=== PATIENT | male | born 1930 | race Caucasian/White ===

== ENCOUNTER 2017-12-02 20:09 | Emergency (ER) | payer MEDICARE, OTHER ==
--- NOTE | 2017-12-02 21:22 | XRAY Report ---
Procedure Date: 12/02/2017 Accession Number: [id number] / [id number] Procedure: XR - Shoulder 3 View LT CPT Code: FULL RESULT: EXAM: LEFT SHOULDER RADIOGRAPHY EXAM DATE: 12/02/2017 09:01 PM. CLINICAL HISTORY: Ground level fall, pain, limited range of motion. COMPARISON: None. TECHNIQUE: 3 views. FINDINGS: Bones: Nondisplaced fracture through the surgical neck of the humerus. Greater tuberosity appears intact. Joints: Moderate degenerative change at the acromioclavicular joint with downward facing osteophytes in position to impinge upon the rotator cuff. Severe osteophytic spurring, subchondral sclerosis and mild subchondral cystic changes at the glenohumeral joint. No dislocation. Soft tissues: Visualized hemithorax contains a small benign calcified granuloma. Otherwise unremarkable. IMPRESSION: Nondisplaced proximal humeral fracture involving the surgical neck. 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 RADIA
[2017-12-02] MEDS ORDERED: MORPHINE 10 MG/ML VIAL IM STA (21:49)
--- NOTE | 2017-12-02 22:03 | ED Physician Documentation ---
PD HPI UPPER EXT INJURY - Stated complaint Stated Complaint: GLF/L SHOULDER PX - Chief complaint Chief Complaint: Ext Problem - History obtained from History obtained from: Patient - History of Present Illness Location: Left, Shoulder Type of injury: Fall Where injury occurred: Home Timing - onset: Enter time (20:00) Timing - details: Abrupt onset Pain level max: 6 Pain level now: 2 Associated symptoms: Swelling. No: Weakness, Numbness Similar symptoms before: Has not had sx before Recently seen: Not recently seen - Additonal information Additional information: tripped and fell tonight at home, c/o left shoulder pain and left elbow swelling. denies head injury, denies LOC. patient is right hand dominant Review of Systems Cardiac: reports: Reviewed and negative Respiratory: reports: Reviewed and negative Musculoskeletal: reports: Joint pain, Joint swelling. denies: Neck pain, Back pain Neurologic: denies: Focal weakness, Numbness, Altered mental status, Headache, Head injury, LOC PD PAST MEDICAL HISTORY - Past Medical History Past Medical History: No - Present Medications Home Medications: Ambulatory Orders Medication Instructions Recorded Confirmed Aspirin 1 tab PO DAILY 12/02/17 12/02/17 Atorvastatin [Lipitor] 20 mg PO DAILY 12/02/17 12/02/17 Omeprazole [PriLOSEC] 1 tab PO DAILY 12/02/17 12/02/17 Tamsulosin HCl [Flomax] 1 tab PO DAILY 12/02/17 12/02/17 oxyCODONE/ACET 5/325 [Percocet 5 1 - 2 each PO Q6H PRN #20 tablet 12/02/17 mg/325 mg] - Allergies Allergies/Adverse Reactions: Allergies Allergy/AdvReac Type Severity Reaction Status Date / Time plague vaccine Allergy Dizziness Verified 12/02/17 20:21 - Social History Does the pt smoke?: No Smoking Status: Never smoker PD ED PE NORMAL - Vitals Vital signs reviewed: Yes - General General: Alert and oriented X 3, No acute distress, Well developed/nourished - Neck Neck: No bony TTP - Respiratory Respiratory: No respiratory distress, Clear bilaterally - Extremities Extremities: Other (left shoulder tenderness and limited ROM (due to pain with movement); left elbow hematoma (lateral aspect) without bony tenderness or limitation in elbow ROM) - Neuro Neuro: Alert and oriented X 3, No motor deficit, No sensory deficit Results - Vitals Vitals: Oxygen O2 Source Room air - Rads (name of study) left shoulder xrays Radiology: Prelim report reviewed, See rad report PD MEDICAL DECISION MAKING - ED course Complexity details: reviewed results, re-evaluated patient, considered differential, d/w patient - Sepsis Event Vital Signs: Oxygen O2 Source Room air Departure - Departure Disposition: Home, Self Care Clinical Impression: Proximal humeral fracture Condition: Good Instructions: ED Fx Shoulder, ED Sling Prescriptions: oxyCODONE/ACET 5/325 [Percocet 5 mg/325 mg] 1 - 2 each PO Q6H PRN #20 tablet PRN Reason: Pain Comments: Follow up with your orthopedic surgeon next week as scheduled Discharge Date/Time: 12/02/17 23:35
[2017-12-02] MEDS ORDERED: oxyCODONE/ACET 5/325 Prepack 4 PO STA (22:50)
[2017-12-02] MEDS ORDERED: BACITRACIN OINT TOP STA (22:51)
[2017-12-02 23:38] VITALS: BP 133/78
== END 2017-12-02 23:35 | disposition home or self-care (01) ==
LOC: ED 20:09
DX: S42.202A Unspecified fracture of upper end of left humerus, initial encounter for closed fracture (principal); W01.0XXA Fall on same level from slipping, tripping and stumbling without subsequent striking against object, initial encounter; Y92.009 Unspecified place in unspecified non-institutional (private) residence as the place of occurrence of the external cause
CPT/HCPCS: 73030; 96372; 99283; A9270